=== PATIENT | male | born 1985 | race Caucasian/White ===

== ENCOUNTER 2019-05-26 01:52 | Emergency (ER) | payer OTHER ==
[2019-05-26] MEDS ORDERED: Diphtheria,Pertussis(Acell),Tetanus Vaccine 0.5 ML SDV IM ONE (02:34)
[2019-05-26] MEDS ORDERED: Bacitracin Oint 1 GM U/D Packet TOP ONE (02:36)
--- NOTE | 2019-05-26 02:37 | EDM.PDOC ---
ED HPI GENERAL MEDICAL PROBLEM - General Chief Complaint: Laceration Stated Complaint: CUT FOREHEAD OPEN Time Seen by Provider: 05/26/19 02:30 Source of Information: Reports: Patient, RN History Limitations: Reports: No Limitations - History of Present Illness INITIAL COMMENTS - FREE TEXT/NARRATIVE: 33 yo male while intoxicated fell on some wooden stairs tonight and cut his forehead on the corner of the stairs. No LOC. Is not UTD on tetanus. No nausea. No neck or extremity pain. 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: Other (see below) (none) - Related Data Allergies Allergy/AdvReac Type Severity Reaction Status Date / Time No Known Allergies Allergy Verified 05/26/19 02:03 Home Meds: Home Meds NK [No Known Home Meds] 05/26/19 [History] Social & Family History - Tobacco Use Smoking Status *Q: Current Some Day Smoker Years of Tobacco use: 3 Packs/Tins Daily: 0.2 - Alcohol Use Days Per Week of Alcohol Use: 3 Number of Drinks Per Day: 7 Total Drinks Per Week: 21 - Recreational Drug Use Recreational Drug Use: No ED ROS GENERAL - Review of Systems Review Of Systems: See Below Constitutional: Reports: No Symptoms HEENT: Reports: No Symptoms Musculoskeletal: Denies: Neck Pain Skin: Reports: Wound (forehead) Neurological: Reports: No Symptoms Psychiatric: Reports: No Symptoms ED EXAM, SKIN/RASH Exam: See Below Exam Limited By: No Limitations General Appearance: Alert, WD/WN, No Apparent Distress Eye Exam: Bilateral Eye: Normal Inspection, PERRL Ears: Normal External Exam, Normal Canal, Hearing Grossly Normal Nose: Normal Inspection, No Blood Throat/Mouth: Normal Inspection, Normal Lips, Normal Oropharynx, Normal Voice, No Airway Compromise Head: Atraumatic, Normocephalic Neck: Normal Inspection, Non-Tender Respiratory/Chest: No Respiratory Distress, Lungs Clear, Normal Breath Sounds, No Accessory Muscle Use Cardiovascular: Regular Rate, Rhythm, No Edema Extremities: Normal Inspection Neurological: Alert, Oriented, CN II-XII Intact, Normal Cognition, No Motor/ Sensory Deficits Psychiatric: Normal Affect, Normal Mood Skin: Warm, Dry, Normal Color, No Rash, Wound/Incision (4 cm eliptical lac of forehead) Location, Skin: Face Characteristics: Linear Associated features: Tenderness. No: Warmth, Inflammation ED SKIN PROCEDURES - Laceration/Wound Repair Forehead Lac/Wound length In cm: 4 Appearance: Subcutaneous, Clean Distal NVT: Neuro & Vascular Intact, No Tendon Injury Anesthetic Type: Local Local Anesthesia - Lidocaine (Xylocaine): 1% with EPI Local Anesthetic Volume: 5cc Skin Prep: Saline Exploration/Debridement/Repair: Wound Explored Closed with: Sutures Suture Size: 6-0 # of Sutures: 17 Suture Type: Prolene Drain Placement: No Sterile Dressing Applied: Nurse Tetanus Status Addressed: Yes Complications: No Course - Vital Signs Last Recorded V/S: Last Vital Signs Temp 36.7 C 05/26/19 02:01 Pulse 112 H 05/26/19 02:01 Resp 12 05/26/19 02:01 BP 168/94 H 05/26/19 02:01 Pulse Ox 99 05/26/19 02:01 - Orders/Labs/Meds Orders: Active Orders 24 hr Category Date Time Status Vaccines to be Administered [RC] PER UNIT ROUTINE Care 05/26/19 02:34 Active Meds: Medications Discontinued Medications Generic Name Dose Route Start Last Admin Trade Name Holly PRN Reason Stop Dose Admin Bacitracin 1 dose 05/26/19 02:36 05/26/19 02:44 Bacitracin Oint 1 Gm TOP 05/26/19 02:37 1 dose ONETIME ONE Administration Diphtheria/Tetanus/Acell Pertussis 0.5 ml 05/26/19 02:34 05/26/19 02:43 Adacel IM 05/26/19 02:35 0.5 ml .ONCE ONE Administration Departure - Departure Time of Disposition: 03:52 Disposition: Home, Self-Care 01 Condition: Good Clinical Impression: Laceration of forehead Qualifiers: Encounter type: initial encounter Qualified Code(s): S01.81XA - Laceration without foreign body of other part of head, initial encounter - Discharge Information *PRESCRIPTION DRUG MONITORING PROGRAM REVIEWED*: No *COPY OF PRESCRIPTION DRUG MONITORING REPORT IN PATIENT RBUEN: No Instructions: Laceration Care, Adult, [id number] Referrals: Krzysztof Robertson Sr, MD [Primary Care Provider] - Forms: ED Department Discharge Additional Instructions: Clean wound twice daily with 1/2 water and 1/2 peroxide. Dry. Apply antibiotic ointment and a new dressing. Stitches out in 6 days. Acetaminophen as needed for pain relief. Recheck sooner for signs of infection. - My Orders Last 24 Hours: My Active Orders 05/26/19 02:34 Vaccines to be Administered [RC] PER UNIT ROUTINE - Assessment/Plan Last 24 Hours: My Active Orders 05/26/19 02:34 Vaccines to be Administered [RC] PER UNIT ROUTINE
== END 2019-05-26 04:05 | disposition home or self-care (01) ==
LOC: JP.ED 01:52
DX: S01.81XA Laceration without foreign body of other part of head, initial encounter (principal); F17.210 Nicotine dependence, cigarettes, uncomplicated; F10.129 Alcohol abuse with intoxication, unspecified; Z23 Encounter for immunization; W10.9XXA Fall (on) (from) unspecified stairs and steps, initial encounter
CPT/HCPCS: 12013; 90471; 90715; 99282